=== PATIENT | female | born 1990 | race Asian ===

== ENCOUNTER → 2017-02-11 | Outpatient (CLI) | payer BC ==
[~2017-02-11] MED LIST: CARV3.122 PO; DOCU-131 PO; ERGO2000 PO; FURO-93 PO; FURO40TA6 PO; HYDR200T PO; HYDR200T5 PO; IBUP-1222 PO; PRED10TA PO; PRED2.5T PO; PRED5TAB PO; PREN-53 PO; PREN1TAB60 PO; SPIR25TA PO; SPIR25TA3 PO
== END | disposition home or self-care (01) ==
LOC: CFH 13:50
PROVIDERS: ATTEND Internal Medicine Cardiovascular Disease
DX: I42.9 Cardiomyopathy, unspecified (principal)
CPT/HCPCS: 93306

== ENCOUNTER → 2020-05-04 | Outpatient (CLI) | payer BC ==
[~2020-05-04] MED LIST changes: +AMBR10TA5 PO; +CHOL10003 PO; +GABA100C PO; -HYDR200T PO; +HYDR200T72 PO; +MYCO500T PO; +POTA10TA6 PO; -SPIR25TA3 PO; +SPIR25TA5 PO; +TADA20TA43 PO; +VITA400C43 PO
[2020-05-04 12:18] LABS: BASOPHILS % (AUTO) 0 % (0-1); EOSINOPHILS % (AUTO) 2 % (1-7); LYMPHOCYTES % (AUTO) 29 % (22-44); MEAN CORPUSCULAR HEMOGLOBIN 29.9 pg (27.0-34.8); MEAN CORPUSCULAR HGB CONC 34.3 g/dL (32.4-35.8); MONOCYTES % (AUTO) 9 % (2-9); NEUTROPHILS % (AUTO) 60 % (42-75); PLATELET COUNT 170 x10^3/uL (130-400); RED BLOOD COUNT 4.44 x10^6/uL (3.82-5.3); RED CELL DISTRIBUTION WIDTH 12.6 % (9.6-15.2)
[2020-05-04 12:19] LABS: MICROSCOPIC AUTO
[2020-05-04 12:21] LABS: MD NO
[2020-05-04 12:29] LABS: ALBUMIN 3.8 g/dL (3.4-5.0); ANION GAP 7 mmol/L (5-15); CALCIUM 8.6 mg/dL (8.5-10.1); CHLORIDE 108 mmol/L (98-107)
[2020-05-04 12:37] LABS: ALANINE AMINOTRANSFERASE 19 U/L (12-78); ALKALINE PHOSPHATASE 86 U/L (45-117); BILIRUBIN,TOTAL 0.4 mg/dL (0.2-1.0); CREATININE 0.87 mg/dL (0.55-1.02)
== END | disposition home or self-care (01) ==
LOC: STAR 10:50
PROVIDERS: ATTEND Obstetrics & Gynecology
DX: Z01.812 Encounter for preprocedural laboratory examination (principal); Z20.822 Contact with and (suspected) exposure to COVID-19
CPT/HCPCS: 80053; 81001; 84702; 85025; 87086; 87635; 93005

== ENCOUNTER 2020-05-10 05:43 | Day surgery (SDC) | payer BC ==
[~2020-05-10] VITALS: Ht 157.5 cm; Wt 56.0 kg
[2020-05-10] MEDS ORDERED: CHLORHEXIDINE 15 ML UDC MM STA (06:04)
[2020-05-10 06:21] VITALS: BP 101/67
[2020-05-10] MEDS ORDERED: LACTATED RINGERS 1,000 ML IV SCH (06:30)
[2020-05-10 06:39] LABS: HCG UR SG 1.017 (1.003-1.030)
[2020-05-10] MEDS ORDERED: BUPIVACAINE/PF 0.25% ONE (07:10)
[2020-05-10] MEDS ORDERED: EPINEPHRINE 1 MG/ML, 1ML ONE (07:10)
[2020-05-10] MEDS ORDERED: SILVER NITRATE STICK TP ONE (07:10)
[2020-05-10] MEDS ORDERED: MAGNESIUM SULFATE 1 GM/2 ML ONE (07:11)
[2020-05-10] MEDS ORDERED: cloniDINE/PF 100 MCG/ML, 10 ML ONE (07:12)
[2020-05-10] MEDS ORDERED: SCOPOLAMINE 1MG PATCH TD ONE (07:12)
[2020-05-10] MEDS ORDERED: LIDOCAINE 1%, 20ML ONE (07:12)
[2020-05-10] MEDS ORDERED: LABETALOL 5MG/ML, 20ML ONE (07:12)
[2020-05-10] MEDS ORDERED: MIDAZOLAM 1 MG/ML, 2ML ONE (07:13)
[2020-05-10] MEDS ORDERED: DEXAMETHASONE 4 MG/ML, 5ML ONE (07:21)
[2020-05-10] MEDS ORDERED: LIDOCAINE-MPF 2% ,5ML ONE (07:21)
[2020-05-10] MEDS ORDERED: GLYCOPYRROLATE 0.2MG/1ML, 5ML ONE (07:21)
[2020-05-10] MEDS ORDERED: PROPOFOL 10 MG/ML, 20ML ONE (07:21)
[2020-05-10] MEDS ORDERED: ROCURONIUM 10MG/ML,5ML ONE (07:21)
[2020-05-10] MEDS ORDERED: FENTANYL PF 100 MCG/2ML ONE (07:24)
[2020-05-10] MEDS ORDERED: ONDANSETRON 2MG/ML, 2ML IVPush PRN (07:30)
[2020-05-10] MEDS ORDERED: EPHEDRINE 50 MG/ML, 1ML IM PRN (07:30)
[2020-05-10] MEDS ORDERED: KETOROLAC 30 MG/1 ML IVPush PRN (07:30)
[2020-05-10] MEDS ORDERED: METHOCARBAMOL 1,000 MG in DEXTROSE 5% 100 ML IV PRN (07:30)
[2020-05-10] MEDS ORDERED: ALBUTEROL SULFATE 2.5 MG/3 ML NPPB PRN (07:30)
[2020-05-10] MEDS ORDERED: LORazepam 2 MG/ML, 1ML IVPush PRN (07:30)
[2020-05-10] MEDS ORDERED: FENTANYL PF 100 MCG/2ML IV PRN (07:30)
[2020-05-10] MEDS ORDERED: DIAZEPAM 5 MG/ML, 2ML IVPush PRN (07:30)
[2020-05-10] MEDS ORDERED: hydrALAzine 20 MG/ML, 1ML IV PRN (07:30)
[2020-05-10] MEDS ORDERED: METOCLOPRAMIDE 5 MG/ML, 2ML IVPush PRN (07:30)
[2020-05-10] MEDS ORDERED: HALOPERIDOL 5 MG/ML IV PRN (07:30)
[2020-05-10] MEDS ORDERED: EPHEDRINE 50 MG/ML, 1ML IVPush PRN (07:30)
[2020-05-10] MEDS ORDERED: LABETALOL 5MG/ML, 20ML IV PRN (07:30)
[2020-05-10] MEDS ORDERED: HYDROcodone/APAP 7.5-325MG/15ML UDC PO PRN (07:30)
[2020-05-10] MEDS ORDERED: MIDAZOLAM 1 MG/ML, 2ML IV PRN (07:30)
[2020-05-10] MEDS ORDERED: DIPHENHYDRAMINE 50 MG/ML, 1ML IVPush PRN (07:30)
[2020-05-10] MEDS ORDERED: HYDROmorphone 1 MG/ML, 1ML INJ IVPush PRN (07:30)
[2020-05-10] MEDS ORDERED: OXYcodone 5 MG/5 ML ORAL.SOL UDC PO PRN (07:30)
[2020-05-10] MEDS ORDERED: ONDANSETRON 2MG/ML, 2ML ONE (08:24)
== END 2020-05-10 11:30 | disposition home or self-care (01) ==
LOC: OUT 05:43
PROVIDERS: ATTEND Obstetrics & Gynecology
DX: Z30.2 Encounter for sterilization (principal); I10 Essential (primary) hypertension; M79.7 Fibromyalgia; I27.9 Pulmonary heart disease, unspecified; G43.909 Migraine, unspecified, not intractable, without status migrainosus; M32.8 Other forms of systemic lupus erythematosus; Z79.899 Other long term (current) drug therapy; Z98.890 Other specified postprocedural states; Z82.49 Family history of ischemic heart disease and other diseases of the circulatory system
CPT/HCPCS: 36415; 58670; 81025; 86850; 86900; 88302; J0171; J0735; J1100; J2250; J2405; J2704; J3010; J3475; J7120

== ENCOUNTER 2020-06-29 09:45 | Outpatient (CLI) | payer BC | END 2020-06-29 23:59 | disposition home or self-care (01) | LOC: CFH 09:45 | PROVIDERS: ATTEND Nurse Practitioner Family | DX: R06.02 Shortness of breath (principal); G47.34 Idiopathic sleep related nonobstructive alveolar hypoventilation; M32.9 Systemic lupus erythematosus, unspecified | CPT/HCPCS: 71250 ==